=== PATIENT | male | born 1960 | race Caucasian/White ===

== ENCOUNTER 2016-09-02 08:37 | Inpatient (IN) | payer OTHER ==
--- NOTE | ~2016-09-02 | HP ---
History And Physical [place] [id number] [place]. [address] NAME: SHAHZAD MG : 60 STATUS : ADM IN PAT#: [id number] AGE: 56 ADM/REG DATE : 09/02/16 MR#: [id number] REPORT SERV DATE: 09/02/16 DICTATED BY: KRISTINE JACOBSEN DATE: 09/02/16 REPORT STATUS : Draft TRANSCRIBED BY: MODL DATE: 09/02/16 DATE OF ADMISSION: 09/02/2016 HISTORY OF PRESENT ILLNESS: This is a very pleasant, 56-year-old male, who presented to [facility] because of severe weakness as well as having epigastric pain and black stool that he noticed yesterday. He denies any chest pain. No shortness of breath. No dizziness, but he is complaining of being very weak. He said that he was taking Goody powders in big amount for headaches. He noticed black stool yesterday and the pain is in the upper epigastric area. REVIEW OF SYSTEMS: No chest pain. No shortness of breath. No fever. No rash. No headaches. No abdominal pain, only in the epigastric area. No abdominal pain in all other quadrants. All 14-point review of systems done and otherwise negative. PAST MEDICAL HISTORY: His past medical history is known for history of hypertension, BPH. He also has history of inguinal hernia. SURGICAL HISTORY: No major surgeries except corneal transplant long time ago. ALLERGIES: HE IS ALLERGIC TO LEVAQUIN. SOCIAL HISTORY: He takes 3 beers every evening. He does not have any alcohol withdrawal. No smoking. No recreational drug use. 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 FAMILY HISTORY: Mother has lupus. Father has multiple myeloma. HOME MEDICATIONS: Diovan, Goody's powders. Also, he takes some ear ointment for dryness. Pharmacy is going to clarify his home medication list. The patient denies any use of nonsteroidal antiinflammatories. PHYSICAL EXAMINATION: GENERAL: Well-nourished, well-developed male, not in acute distress, resting quietly. VITAL SINGS: Blood pressure on lying down was 109/63, heart rate 89, sitting 108/63, heart rate 88, standing 85/63, heart rate 122. HEENT: Head atraumatic, normocephalic. Conjunctivae clear. Pupils are equal and reactive to light and accommodation. Extraocular muscles are intact. NECK: Supple. Trachea is midline. No supraclavicular or cervical lymphadenopathy. LUNGS: Clear to auscultation bilaterally. Normal respiratory effort. CARDIOVASCULAR: Regular rate and rhythm. Point of maximal impulse not displaced. ABDOMEN: Soft. There is tenderness in the epigastric area. There is no guarding. No rebound. There is no pain in all other abdominal quadrants. There is no organomegaly. EXTREMITIES: No clubbing, cyanosis, or edema. SKIN: Normal color and turgor. NEUROLOGIC: He is awake, alert, oriented in time, place, and person. Muscle strength 5/5 bilaterally in upper and lower extremities. History And Physical [address] [address] NAME: SHAHZAD MG : 60 STATUS : ADM IN [facility]#: [id number] AGE: 56 ADM/REG DATE : 09/02/16 MR#: [id number] REPORT SERV DATE: 09/02/16 DICTATED BY: KRISTINE JACOBSEN DATE: 09/02/16 REPORT STATUS : Draft TRANSCRIBED BY: JC DATE: 09/02/16 LABORATORY RESULTS: White count 10.5, hemoglobin 10.7, hematocrit 30.7, and platelet count 246. PT 14.6, INR 1.2. Sodium 141, potassium 3.9, chloride 106, carbon dioxide 26, BUN 36, creatinine 0.95. ASSESSMENT AND PLAN: 1. This is a very pleasant, 56-year-old male, who presented with black stool melena and upper gastrointestinal bleed. 2. Anemia of acute blood loss. 3. Epigastric pain. His gastrointestinal bleeding is related to Goody's Powder use. The patient was told to stop using Goody's Powder. The patient will be started on Protonix drip as well as we will check his hemoglobin, hematocrit serially. If necessary, we will give him blood transfusions. 4. Orthostatic hypotension. The patient already received 1 L of fluid bolus and we will continue IV fluid hydration. We will recheck his orthostatics. If necessary, we will give him more IV fluid boluses. 5. His blood pressure medications will be discontinued right now. Gastroenterology already saw the patient and they are taking him for upper endoscopy. 6. Patient's status, currently observation. MG/MODL Kristine Jacobsen M.D. / [id number] CC: Sawyer Finn M.D.
--- NOTE | ~2016-09-02 | DS ---
Discharge Summary [facility] [address] [facility] [place]. [address] NAME: SHAHZAD MG : 60 STATUS : ADM IN PAT#: [id number] AGE: 56 ADM/REG DATE : 09/02/16 MR#: [id number] REPORT SERV DATE: 09/05/16 DICTATED BY: KRISTINE JACOBSEN DATE: 09/05/16 REPORT STATUS : Draft TRANSCRIBED BY: MODL DATE: 09/05/16 ADMISSION DATE: 09/02/2016 DISCHARGE DATE: 09/05/2016 SHIFT MECHANIC: Anurag Lane M.D. DIAGNOSES ON ADMISSION: 1. Coffee-grounds emesis and melena. 2. Upper gastrointestinal bleed. 3. Anemia of acute blood loss. 4. Epigastric pain. 5. Orthostatic hypotension. DIAGNOSES ON DISCHARGE: 1. Peptic ulcer disease with duodenal ulcer and with a pyloric stenosis, status post upper endoscopy. 2. Epigastric pain, present on admission, resolved. 3. Anemia of acute blood loss, stable hemoglobin and hematocrit. 4. Orthostatic hypotension, present on admission, resolved. 5. Stop using Goody Powders. 6. History of chronic headaches. Use Tylenol p.r.n. for headache. 7. Blood pressure in normal range, does not need blood pressure medications. 8. Anemia of acute blood loss, stable hemoglobin and hematocrit. CONSULTANTS ON THE CASE: Flight Test Supervisor, Dr. Swanson; nurse practitioner, Kobe. PROCEDURE: Upper endoscopy done by Dr. Antwan Fregoso, 09/02/2016, which showed normal esophagus, hiatal hernia, gastric ulcer with clean base, gastritis, gastric stenosis on the pylorus. One duodenal ulcer containing visible vessel, treated with thermal therapy. HISTORY OF PRESENT ILLNESS: Briefly, this is a 56-year-old male who presented to [facility] on 09/02/2016 with hematemesis, black stool, GI bleeding, and orthostatic hypotension. The patient used at home Goody Powders on a regular basis for headache for many years. The patient immediately had upper endoscopy, which showed results as above. The patient was placed on Protonix drip upon admission. The patient's hemoglobin and hematocrit were checked. He had one unit of blood transfusion on admission. His hemoglobin and hematocrit stayed stable. The patient was monitored after upper endoscopy on the weekend and Protonix drip was continued. He is doing well today. He tolerates diet. His hemoglobin looks stable, it was 8 on 09/04/2016 and then 7.4 on 09/05/2016 morning and then rechecked again, it was 7.7 on 1030 hours. There was some delusional effect on hemoglobin, but it came up on last check 7.7. Gastroenterology nurse practitioner, Kobe, saw the patient also this morning and she recommended the patient to be discharged if his hemoglobin more than 7. Since his hemoglobin is 7.7, we are discharging him and traffic control specialist also okay with the discharge. His orthostatic blood pressure was also checked this morning; on lying was 117/63, sitting 125/75, and standing 128/74. He was not orthostatic yesterday also and he was doing well very well. His gastric pain has resolved. I had a long Discharge Summary [address] [place]. [address] NAME: SHAHZAD MG : 60 STATUS : ADM IN [facility]#: [id number] AGE: 56 ADM/REG DATE : 09/02/16 MR#: [id number] REPORT SERV DATE: 09/05/16 DICTATED BY: KRISTINE JACOBSEN DATE: 09/05/16 REPORT STATUS : Draft TRANSCRIBED BY: JC DATE: 09/05/16 discussion with him and his and I explained that he has extensive ulcers as well as pyloric stenosis from chronic use of Goody Powders. He was told to avoid any nonsteroidal anti-inflammatory, and he was told to avoid to use Goody Powders. Tylenol at a dose of 650 twice a day was recommended to use for headaches. The patient is stable to go home. The patient needs to follow up with Dr. Anurag Lane in four weeks for repeat endoscopy and also plan for pyloric stenosis workup. The patient to continue his home Flexeril 10 mg a day. The patient was given prescription for Protonix 40 mg twice a day. Flomax, his home medicine, to continue at 0.4 mg a day. The patient to stop his valsartan. Nurse practitioner also prescribed Ultram 50 mg half pill to one pill q.4 to 6 hours p.r.n. for headache. The patient was discharged in stable condition. He needs to follow up with Dr. Sawyer Finn in a week to check hemoglobin and hematocrit. The patient to follow up with Dr. Anurag Lane in four weeks. I spent 45 minutes on discharge. The patient was discharged in a stable condition. MG/MODL Kristine Jacobsen M.D. / [id number] CC: Stacy Lira M.D. Vijaykurmar Patel, M.D.
--- NOTE | ~2016-09-02 | CN ---
Consultation Report [facility] [address] [place]. [address] NAME: SHAHZAD TERAN : 60 STATUS : ADM IN PAT#: [id number] AGE: 56 ADM/REG DATE : 09/02/16 MR#: [id number] REPORT SERV DATE: 09/02/16 DICTATED BY: JOSLYN SILVA DATE: 09/02/16 REPORT STATUS : Draft TRANSCRIBED BY: MODL DATE: 09/02/16 GI CONSULTATION DATE OF CONSULTATION: 09/02/2016 REASON FOR CONSULTATION: Evaluation and management of upper GI bleed, melenic stools. HISTORY OF PRESENT ILLNESS: Mr. Teran is a pleasant, 56-year-old, male patient, who is known to Dr. Jake Lane, who presented with a chief complaint on the of upper GI bleed melena. He states that he was in his typical state of health up until Monday. He states on Monday, he had a sharp, epigastric abdominal pain, was unable to eat for the next 24 hours. He went to bed last night, was awoken with the sensation of needing to have a bowel movement. He states that he passed nothing, but black tarry stools. He reports that this has happened on four other occasions prior to coming in. He states that all his stools are very dark and black. He has had some mild epigastric discomfort. He felt dizzy when getting in his car but did not lose consciousness. He admits to taking Goody Powders. He states that he takes three powders a day and has done so since his 20s for chronic headache. I have discussed with him and his who is present at the bedside. We will plan on pursuing upper endoscopy today with Dr. Fregoso. I did discuss the risks, benefits, alternatives, and complications with him to include, but not limited to risk of bleeding, perforation, infection, reaction to medication, as well as cardiac and pulmonary side effects. He is agreeable to proceed. He has had a recent colonoscopy with Dr. Lane on 08/16/2016. The colonoscopy showed normal terminal ilium, nonbleeding internal hemorrhoids. Otherwise normal exam. No biopsies. No polyps. Nothing was taken out during that procedure. PAST MEDICAL HISTORY: Positive for chronic headache, hypertension, BPH, back pain. SURGICAL HISTORY: Cornea transplant, colonoscopy. SOCIAL HISTORY: He denies alcohol, tobacco, or illicit's. He is , lives independently. FAMILY HISTORY: Noncontributory from a GI standpoint. ALLERGIES: LEVAQUIN. HOME MEDICATIONS: Goody's extra-strength powders. He takes them 3 times a day on a schedule. Flexeril, Nexium, otic suspension, Flomax, and Diovan. REVIEW OF SYSTEMS: Ten-point review of systems obtained, pertinent positives addressed in the history of present illness. Consultation Report [place] [id number] [place]. [address] NAME: SHAHZAD TERAN : 60 STATUS : ADM IN [facility]#: [id number] AGE: 56 ADM/REG DATE : 09/02/16 MR#: [id number] REPORT SERV DATE: 09/02/16 DICTATED BY: JOSLYN SILVA DATE: 09/02/16 REPORT STATUS : Draft TRANSCRIBED BY: JC DATE: 09/02/16 PHYSICAL EXAMINATION: VITAL SIGNS: Temperature 98.2, pulse 100, respirations 16, blood pressure 108/66. GENERAL: Alert, male, resting in bed. No focal deficits. Cooperative, no apparent distress. Awake, alert, and oriented x3. HEAD, EARS, EYES, NOSE, AND THROAT: Anicteric. Pupils equal, round, reactive to light and accommodation. Normocephalic and atraumatic. NECK: No JVD. No palpable nodes. LUNGS: Clear anteriorly with normal respiratory effort exhibited. Equal expansion. CARDIOVASCULAR: Regular rate and rhythm. S1, S2. No murmurs, rubs, gallops, S3 or S4 appreciated. ABDOMEN: Soft, nondistended, mildly tender to palpation to the epigastric region. Active bowel sounds in all four quadrants. No rebound, guarding or organomegaly elicited on exam. EXTREMITIES: No edema. Normal distal pulses. SKIN: Warm, dry, and intact. PSYCHIATRIC: Normal mood. Normal affect. PERTINENT LABORATORY DATA: Sodium 141, potassium 3.9, BUN is 36, creatinine 0.95. White count 10.5, hemoglobin 10.7, hematocrit 30.7, platelet count 246. INR of 1.2. ASSESSMENT: 1. Upper gastrointestinal bleed. Differential diagnosis peptic ulcer disease visible vessel. He could have esophagitis, gastritis, duodenitis. 2. Acute blood loss anemia. 3. Presyncope. 4. Epigastric abdominal pain. 5. Chronic headache with t.i.d. Goody Powder usage for multiple years. PLAN: 1. PPI drip. 2. EGD today. 3. Follow H and H, transfuse if needed. Other recommendations to follow endoscopy. KALEB/MODDestinee Joslyn NIALL Chowdhury / [id number] CC: Sawyer Finn M.D.
--- NOTE | ~2016-09-02 | EGD ---
EGD REPORT [facility] [address] [address] NAME: SHAHZAD TERAN : 60 STATUS : ADM IN PAT#: [id number] AGE: 56 ADM/REG DATE : 09/02/16 MR#: [id number] REPORT SERV DATE: 09/02/16 DICTATED BY: FREEDOM SPEAR DATE: 09/02/16 REPORT STATUS : Draft TRANSCRIBED BY: [employer] DATE: 09/02/16 Endoscopy Center Patient Name: Shahzad Teran Date of : 1960 Attending MD: FREEDOM SPEAR, Procedure Date No Time: 09/02/2016 Procedure: Upper GI endoscopy Indications: Melena Referring MD: SARAH LYON Medicines: Monitored Anesthesia Care Complications: No immediate complications. Estimated blood loss: None. Procedure: Pre-Anesthesia Assessment: - ASA Grade Assessment: I - A normal, healthy patient. After obtaining informed consent, the endoscope was passed under direct vision. Throughout the procedure, the patient's blood pressure, pulse, and oxygen saturations were monitored continuously. The GIF [id number] was introduced through the mouth, and advanced to the second part of duodenum. The upper GI endoscopy was accomplished without difficulty. The patient tolerated the procedure well. Findings: The examined esophagus was normal. A small hiatus hernia was present. One non-bleeding cratered gastric ulcer with no stigmata of bleeding was found in the prepyloric region of the stomach. The lesion was 10 mm in largest dimension. It was deeply cratered and along the greater curve it was difficulty to see fully due to distortion from scarring. Patchy moderate inflammation characterized by erythema was found in the entire examined stomach. Biopsies were taken with a cold forceps for histology. Verification of patient identification for the specimen was done. Estimated blood loss was minimal. A benign-appearing, intrinsic mild stenosis was found at the pylorus. This was traversed. One non-bleeding cratered duodenal ulcer with a visible vessel was found in the second part of the duodenum. The lesion was 10 mm in largest dimension. Coagulation for hemostasis using bipolar probe was successful. This ulcer was circumferential and associated witha bandlike stricture that was not traversed. The exam of the duodenum was otherwise normal. Impression: - Normal esophagus. - Hiatus hernia. - Gastric ulcer with clean base. EGD REPORT [address] [address] NAME: SHAHZAD TERAN : 60 STATUS : ADM IN [facility]#: [id number] AGE: 56 ADM/REG DATE : 09/02/16 MR#: [id number] REPORT SERV DATE: 09/02/16 DICTATED BY: FREEDOM SPEAR DATE: 09/02/16 REPORT STATUS : Draft TRANSCRIBED BY: [employer] DATE: 09/02/16 - Gastritis. Biopsied. - Gastric stenosis was found at the pylorus. - One duodenal ulcer containing visible vessel. Treated with thermal therapy. Recommendation: - Clear liquid diet. - Await pathology results. - Continue present medications. - Protonix drip. - Will need f/u EGD with dilatation. - No NSAID's. Procedure Code(s): --- Professional --- 45923, Esophagogastroduodenoscopy, flexible, transoral; with biopsy, single or multiple Diagnosis Code(s): --- Professional --- K44.9, Diaphragmatic hernia without obstruction or gangrene K25.9, Gastric ulcer, unspecified as acute or chronic, without hemorrhage or perforation K29.70, Gastritis, unspecified, without bleeding K31.1, Adult hypertrophic pyloric stenosis K26.4, Chronic or unspecified duodenal ulcer with hemorrhage K92.1, Melena CPT copyright 2013 [employer]. All rights reserved. The codes documented in this report are preliminary and upon burner technician review may be revised to meet current compliance requirements. FREEDOM SPEAR, 09/02/2016 12:35 PM Number of Addenda: 0 Note Initiated On: 09/02/2016 12:04 PM Scope Withdrawal Time 0 hours 0 minutes 0 seconds
[2016-09-02 08:20] LABS: BASOPHILS 0.3 %; BASOPHILS ABSOLUTE 0.03 10/3/uL (0.0-0.16); EOSINOPHILS 0.3 %; EOSINOPHILS ABSOLUTE 0.03 10/3/uL (0.0-0.53); HEMATOCRIT 30.7 % (40.0-51.0); HEMOGLOBIN 10.7 g/dL (13.6-17.8); IMMATURE GRANULOCYTES 0.3 %; IMMATURE GRANULOCYTES ABSOLUTE 0.03 10/3/uL (0.0-0.11); LYMPHOCYTES 18.8 %; LYMPHOCYTES ABSOLUTE 1.98 10/3/uL (0.67-4.30); MEAN CORPUS HGB CONC 34.9 g/dL (32.0-36.0); MEAN CORPUSCULAR HEMOGLOB 33.1 pg (26.0-34.0); MEAN PLATELET VOLUME 9.2 fL (9.2-13.0); MONOCYTES 7.5 %; MONOCYTES ABSOLUTE 0.79 10/3/uL (0.21-1.20); NEUTROPHILS 72.8 %; NEUTROPHILS ABSOLUTE 7.68 10/3/uL (2.02-8.40); PLATELET COUNT 246 10/3/uL (150-400); RBC DISTRIBUTION WIDTH 12.3 % (12.0-16.0); RED CELL COUNT 3.23 10/6/uL (4.7-6.1); WHITE BLOOD CELLS 10.5 10/3/uL (4.5-10.5)
[2016-09-02 08:21] LABS: MANUAL DIFF NO %
[2016-09-02 08:37] LABS: A/G RATIO 1.3 (0.7-1.9); ALBUMIN 3.5 G/DL (3.5-5.0); ALKALINE PHOSPHATASE 48 U/L (45-117); BUN (BLOOD UREA NITROGEN) 36 MG/DL (6-23); CALCIUM, SERUM 8.6 MG/DL (8.5-10.4); CHLORIDE, SERUM 106 MMOL/L (96-112); CO2 (CARBON DIOXIDE) 26 MMOL/L (24-34); CREATININE 0.95 MG/DL (0.70-1.30); GFR AFRICAN AMERICAN 103 ML/MIN (>=60); GFR NON AFRICAN AMERICAN 89 ML/MIN (>=60); GLOBULIN 2.7 G/DL (2.5-4.1); GLUCOSE, SERUM 86 MG/DL (60-99); POTASSIUM, SERUM 3.9 MMOL/L (3.5-5.3); SGOT(AST) 9 U/L (5-40); SGPT(ALT) 27 U/L (5-65); SODIUM, SERUM 141 MMOL/L (135-148); TOTAL BILIRUBIN 0.3 MG/DL (0-1.2); TOTAL PROTEIN 6.2 G/DL (6.0-8.5)
[2016-09-02 09:16] LABS: INTERNATIONAL NORMAL RATI 1.2 UNITS (-); PARTIAL THROMBO TIME 28.1 SEC (22.5-37.2); PROTIME (NOT ORD) 14.6 SEC (12.0-14.5)
[2016-09-02] MEDS ORDERED: FLEX PO (10:37)
[2016-09-02] MEDS ORDERED: DIOV160 PO (10:37)
[2016-09-02] MEDS ORDERED: FLOMAX4 PO (10:38)
[2016-09-02] MEDS ORDERED: GOODY'S EX-STR1 EAC1 PO (10:38)
[2016-09-02] MEDS ORDERED: NEXIUM20 M1 PO (10:39)
[2016-09-02] MEDS ORDERED: CORTOTSUSP OT (10:40)
[2016-09-02 14:17] LABS: HEMOGLOBIN 8.7 g/dL (13.6-17.8)
[2016-09-02 14:18] LABS: HEMATOCRIT 25.7 % (40.0-51.0)
[2016-09-02 20:35] LABS: HEMOGLOBIN 7.5 g/dL (13.6-17.8)
[2016-09-02 20:38] LABS: HEMATOCRIT 22.4 % (40.0-51.0)
[2016-09-03 02:31] LABS: BASOPHILS 0.6 %; BASOPHILS ABSOLUTE 0.04 10/3/uL (0.0-0.16); EOSINOPHILS 0.9 %; EOSINOPHILS ABSOLUTE 0.06 10/3/uL (0.0-0.53); HEMATOCRIT 21.8 % (40.0-51.0); HEMOGLOBIN 7.5 g/dL (13.6-17.8); IMMATURE GRANULOCYTES 0.1 %; IMMATURE GRANULOCYTES ABSOLUTE 0.01 10/3/uL (0.0-0.11); LYMPHOCYTES 43.1 %; LYMPHOCYTES ABSOLUTE 3.03 10/3/uL (0.67-4.30); MEAN CORPUS HGB CONC 34.4 g/dL (32.0-36.0); MONOCYTES 6.4 %; MONOCYTES ABSOLUTE 0.45 10/3/uL (0.21-1.20); NEUTROPHILS 48.9 %; NEUTROPHILS ABSOLUTE 3.44 10/3/uL (2.02-8.40); PLATELET COUNT 200 10/3/uL (150-400); RBC DISTRIBUTION WIDTH 12.4 % (12.0-16.0)
[2016-09-03 02:33] LABS: MANUAL DIFF NO %; RED CELL COUNT 2.27 10/6/uL (4.7-6.1)
[2016-09-03 02:43] LABS: CHLORIDE, SERUM 111 MMOL/L (96-112); CO2 (CARBON DIOXIDE) 27 MMOL/L (24-34); CREATININE 0.78 MG/DL (0.70-1.30); GFR AFRICAN AMERICAN 117 ML/MIN (>=60); GFR NON AFRICAN AMERICAN 101 ML/MIN (>=60); GLUCOSE, SERUM 102 MG/DL (60-99); POTASSIUM, SERUM 3.9 MMOL/L (3.5-5.3); SODIUM, SERUM 145 MMOL/L (135-148)
[2016-09-03 02:45] LABS: BUN (BLOOD UREA NITROGEN) 21 MG/DL (6-23); CALCIUM, SERUM 7.6 MG/DL (8.5-10.4)
[2016-09-03 07:07] LABS: HEMOGLOBIN 7.1 g/dL (13.6-17.8)
[2016-09-03 07:08] LABS: HEMATOCRIT 20.3 % (40.0-51.0)
[2016-09-03 13:43] LABS: HEMATOCRIT 22.1 % (40.0-51.0); HEMOGLOBIN 7.8 g/dL (13.6-17.8)
[2016-09-03 19:33] LABS: HEMATOCRIT 22.2 % (40.0-51.0); HEMOGLOBIN 7.7 g/dL (13.6-17.8)
[2016-09-04 06:59] LABS: HEMOGLOBIN 7.4 g/dL (13.6-17.8)
[2016-09-04 07:06] LABS: HEMATOCRIT 20.9 % (40.0-51.0)
[2016-09-04 07:09] LABS: BUN (BLOOD UREA NITROGEN) 9 MG/DL (6-23); CALCIUM, SERUM 7.6 MG/DL (8.5-10.4); CHLORIDE, SERUM 113 MMOL/L (96-112); CO2 (CARBON DIOXIDE) 25 MMOL/L (24-34); CREATININE 0.84 MG/DL (0.70-1.30); GFR AFRICAN AMERICAN 113 ML/MIN (>=60); GFR NON AFRICAN AMERICAN 98 ML/MIN (>=60); GLUCOSE, SERUM 92 MG/DL (60-99); POTASSIUM, SERUM 3.8 MMOL/L (3.5-5.3); SODIUM, SERUM 147 MMOL/L (135-148)
[2016-09-04 11:59] LABS: HEMATOCRIT 22.8 % (40.0-51.0)
[2016-09-05 06:42] LABS: HEMATOCRIT 21.6 % (40.0-51.0); HEMOGLOBIN 7.4 g/dL (13.6-17.8)
[2016-09-05 06:53] LABS: BUN (BLOOD UREA NITROGEN) 7 MG/DL (6-23); CALCIUM, SERUM 8.1 MG/DL (8.5-10.4); CHLORIDE, SERUM 112 MMOL/L (96-112); CO2 (CARBON DIOXIDE) 26 MMOL/L (24-34); CREATININE 0.83 MG/DL (0.70-1.30); GFR AFRICAN AMERICAN 114 ML/MIN (>=60); GFR NON AFRICAN AMERICAN 98 ML/MIN (>=60); GLUCOSE, SERUM 90 MG/DL (60-99); POTASSIUM, SERUM 3.8 MMOL/L (3.5-5.3); SODIUM, SERUM 146 MMOL/L (135-148)
[2016-09-05 11:38] LABS: HEMATOCRIT 22.4 % (40.0-51.0); HEMOGLOBIN 7.7 g/dL (13.6-17.8)
[2016-09-05] MEDS ORDERED: PROTONIX PO (12:49)
[2016-09-05] MEDS ORDERED: ULTRAM50 PO (12:50)
== END 2016-09-05 14:08 | disposition home or self-care (01) | DRG 378 ==
LOC: ER 08:37 → 5SO 10:49
PROVIDERS: Hospitalist; Internal Medicine Gastroenterology; Physician Assistant
PROC: 0W3P8ZZ Control Bleeding in Gastrointestinal Tract, Via Natural or Artificial Opening Endoscopic (ICD-10-PCS; 2016-09-02)
PROC: 0DB68ZX Excision of Stomach, Via Natural or Artificial Opening Endoscopic, Diagnostic (ICD-10-PCS; principal; 2016-09-02 12:18)
PROC: 30233N1 Transfusion of Nonautologous Red Blood Cells into Peripheral Vein, Percutaneous Approach (ICD-10-PCS; 2016-09-03)
DX: K26.4 Chronic or unspecified duodenal ulcer with hemorrhage (principal); D62 Acute posthemorrhagic anemia; K31.1 Adult hypertrophic pyloric stenosis; I95.1 Orthostatic hypotension; R51 Headache; K29.70 Gastritis, unspecified, without bleeding; Z79.899 Other long term (current) drug therapy; Z94.7 Corneal transplant status
CPT/HCPCS: 36415; 80048; 80053; 83735; 85014; 85018; 85025; 85610; 85730; 86850; 86900; 86901; 86920; 88305; 96361; 96374; 99285; A9270-GY; C9113; P9016